=== PATIENT | male | born 1985 | race Hispanic/Latino ===

== ENCOUNTER 2019-09-11 14:31 | Emergency (ER) | payer SELFPAY ==
[2019-09-11] MEDS ORDERED: LIDOCAINE 2% MPF 5 ML VIAL ONE (15:54)
[2019-09-11] MEDS ORDERED: HYDROCODONE/APAP 10/325 TAB ONE (15:55)
[2019-09-11] MEDS ORDERED: BUPIVACAINE 0.5% PF 10 ML VIAL ONE (15:56)
--- NOTE | 2019-09-11 16:10 | RAD REPORT ---
EXAM DESCRIPTION: RAD - Chest Pa And Lat (2 Views) - 09/11/2019 3:43 pm CLINICAL HISTORY: PAINlower chest pain, rib pain, right flank pain COMPARISON: July 2014 TECHNIQUE: PA and lateral views of the chest were obtained. FINDINGS: The lungs are clear. Heart size is normal and central vasculature is within normal limit s. Left hilar fullness is not substantially different when adjusting for positioning and technique di fferences. No pleural effusion or pneumothorax seen. Fractures of the right sixth and ninth ribs are evident but not well visualized. Additional rib fractures could be present. No callus formation or o ther changes that would indicate subacute to remote fracture. No trauma history was detailed. No aort ic abnormality. IMPRESSION: Fractures of the right sixth and ninth ribs are present but not well visualized on stand marichuy protocol chest examination. Additional rib fractures could be present. No acute lung parenchymal finding. As clinical findings warrant, dedicated right-sided rib films could be obtained.
--- NOTE | 2019-09-11 16:13 | RAD REPORT ---
EXAM DESCRIPTION: RAD - Hand Left 3 View - 09/11/2019 3:45 pm CLINICAL HISTORY: Right hand pain and swelling COMPARISON: None. FINDINGS: Transverse fracture of the distal shaft left third proximal phalanx. There is dorsal 90 de gree angulation deformity of the distal fracture fragment. No distraction. No acute finding at the le ft third PIP joint. There is an acute flexion orientation of the middle phalanx relative to the dista l fracture fragment. No trauma history is supplied. No pathologic change. There is soft tissue swelli ng in this region. No other fracture changes present. No other acute bone or joint finding. No foreign body or other sof t tissue abnormality. IMPRESSION: Left third proximal phalanx fracture with 90 degree dorsal angulation of the distal frac ture fragment.
--- NOTE | 2019-09-11 16:26 | RAD REPORT ---
EXAM DESCRIPTION: RAD - Hand Left 2 View - 09/11/2019 4:19 pm CLINICAL HISTORY: Left third digit fracture, post reduction maneuvers COMPARISON: September 11 FINDINGS: PA and lateral views were obtained labeled post reduction. The 90 degree fracture angulati on deformity of the third proximal phalanx remains.
[2019-09-11] MEDS ORDERED: CEFAZOLIN/SWI 1gm 1 GM/10 ML SYR ONE (17:16)
[2019-09-11] MEDS ORDERED: TETANUS & DIPHTHERIA TOX,ADULT 0.5 ML VIAL ONE (17:16)
[2019-09-11 17:25] LABS: Absolute Lymphocytes (CBC) 2.2 K/uL (0.7-4.9); Hematocrit 43.6 % (39.6-49.0); Lymphocytes % 26.1 % (15.3-44.8); MPV 8.2 fL (7.6-11.3)
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
[2019-09-11 17:40] LABS: Potassium 4.2 mmol/L (3.5-5.1)
[2019-09-11] MEDS ORDERED: FENTANYL CITR 100 MCG/2 ML ONE (18:13)
[2019-09-11 18:56] VITALS: TEMP 98.2; O2SAT 100
[2019-09-11 18:58] VITALS: BP 119/97
== END 2019-09-11 18:44 | disposition short-term general hospital (02) ==
LOC: ER 14:31
DX: S22.41XA Multiple fractures of ribs, right side, initial encounter for closed fracture (principal); S62.613A Displaced fracture of proximal phalanx of left middle finger, initial encounter for closed fracture; X93.XXXA Assault by handgun discharge, initial encounter; Y93.9 Activity, unspecified; Y92.89 Other specified places as the place of occurrence of the external cause; Z23 Encounter for immunization; Z88.6 Allergy status to analgesic agent; Z72.0 Tobacco use
CPT/HCPCS: 36415; 64450; 71046; 80048; 85025; 90471; 90714; 96374; 96375; 99285; J0690; J3010

== ENCOUNTER 2019-10-16 17:12 | Emergency (ER) | payer SELFPAY ==
--- OUTSIDE RECORDS SUMMARY | 2019-10-16 17:14 | XMS REPORT ---
:1985 [facility] Address [address] [place] [address] Dr. Linder [address] [place] [id number] Care Team Providers Name Role Phone Unavailable Unavailable Unavailable Problems This patient has no known problems. Allergies, Adverse Reactions, Alerts This patient has no known allergies or adverse reactions. Medications This patient has no known medications. Encounters Start End Encounter Admission Attending Care Care Encounter Date/Time Date/Time Type Type Clinicians Facility Department ID 2017-12-08 2017-12-14 [facility] [id number] 00:00:00 00:00:00
[2019-10-16] MEDS ORDERED: SMZ./TMP. 800/160 MG TABLET ONE (17:57)
[2019-10-16] MEDS ORDERED: MUPIROCIN 2% OINT 22GM TUBE TOP ONE (17:57)
--- NOTE | 2019-10-16 18:06 | EDPHYS ---
Physician Documentation [facility] Name: Jose Villela Age: 34 yrs Sex: Male : 1985 Arrival Date: 10/16/2019 Time: 17:14 Bed 30 Private MD: ED Physician Isaiah Llanes HPI: 10/16 17:52 This 34 yrs old Male presents to ER via Ambulatory with complaints of Infected brittany finger. 17:52 The patient or guardian reports decreased range of motion, pain, swelling. The brittany complaints affect the PIP of right middle finger. Context: The problem was sustained at home. Onset: The symptoms/episode began/occurred 4 week(s) ago. Modifying factors: The symptoms are alleviated by nothing, elevation, the symptoms are aggravated by movement, dependent position. Associated signs and symptoms: The patient has no apparent associated signs or symptoms. Severity of symptoms: At their worst the symptoms were mild, in the emergency department the symptoms are unchanged. The patient has experienced similar episodes in the past, a few times. Historical: - Allergies: 17:21 Ibuprofen; hb - Home Meds: 17:21 gabapentin oral oral [Active]; Wellbutrin Oral [Active]; Adderall XR Oral [Active]; hb - PSHx: 17:21 Left middle finger; hb - Immunization history:: Adult Immunizations up to date. - Coronavirus screen:: The patient has NOT traveled to [place], [place], or [place] in the past 14 days. The patient has NOT had contact with known/suspected case of Coronavirus? Proceed with normal triage procedures. - Social history:: Smoking status: Reported history of juuling and/or vaping. - Family history:: not pertinent. - Ebola Screening: : No symptoms or risks identified at this time. ROS: 17:52 Constitutional: Negative for fever, chills, and weight loss, Eyes: Negative for injury, brittany pain, redness, and discharge, ENT: Negative for injury, pain, and discharge, Neck: Negative for injury, pain, and swelling, Cardiovascular: Negative for chest pain, palpitations, and edema, Respiratory: Negative for shortness of breath, cough, wheezing, and pleuritic chest pain, Abdomen/GI: Negative for abdominal pain, nausea, vomiting, diarrhea, and constipation, Back: Negative for injury and pain, : Negative for injury, bleeding, discharge, and swelling, Skin: Negative for injury, rash, and discoloration, Neuro: Negative for headache, weakness, numbness, tingling, and seizure, Psych: Negative for depression, anxiety, suicide ideation, homicidal ideation, and hallucinations, Allergy/Immunology: Negative for hives, rash, and allergies, Endocrine: Negative for neck swelling, polydipsia, polyuria, polyphagia, and marked weight changes, Hematologic/Lymphatic: Negative for swollen nodes, abnormal bleeding, and unusual bruising. 17:52 MS/extremity: Positive for decreased range of motion, pain, swelling, tenderness, of the dorsal aspect of middle phalanx of right middle finger and dorsal aspect of proximal phalanx of right middle finger. Exam: 17:52 Constitutional: This is a well developed, well nourished patient who is awake, alert, brittany and in no acute distress. Head/Face: Normocephalic, atraumatic. Eyes: Pupils equal round and reactive to light, extra-ocular motions intact. Lids and lashes normal. Conjunctiva and sclera are non-icteric and not injected. Cornea within normal limits. Periorbital areas with no swelling, redness, or edema. ENT: Nares patent. No nasal discharge, no septal abnormalities noted. Tympanic membranes are normal and external auditory canals are clear. Oropharynx with no redness, swelling, or masses, exudates, or evidence of obstruction, uvula midline. Mucous membranes moist. Neck: Trachea midline, no thyromegaly or masses palpated, and no cervical lymphadenopathy. Supple, full range of motion without nuchal rigidity, or vertebral point tenderness. No Meningismus. Chest/axilla: Normal chest wall appearance and motion. Nontender with no deformity. No lesions are appreciated. Cardiovascular: Regular rate and rhythm with a normal S1 and S2. No gallops, murmurs, or rubs. Normal PMI, no JVD. No pulse deficits. Respiratory: Lungs have equal breath sounds bilaterally, clear to auscultation and percussion. No rales, rhonchi or wheezes noted. No increased work of breathing, no retractions or nasal flaring. Abdomen/GI: Soft, non-tender, with normal bowel sounds. No distension or tympany. No guarding or rebound. No evidence of tenderness throughout. Back: No spinal tenderness. No costovertebral tenderness. Full range of motion. Male : Normal genitalia with no discharge or lesions. Skin: Warm, dry with normal turgor. Normal color with no rashes, no lesions, and no evidence of cellulitis. Neuro: Awake and alert, GCS 15, oriented to person, place, time, and situation. Cranial nerves II-XII grossly intact. Motor strength 5/5 in all extremities. Sensory grossly intact. Cerebellar exam normal. Normal gait. Psych: Awake, alert, with orientation to person, place and time. Behavior, mood, and affect are within normal limits. 17:52 Musculoskeletal/extremity: ROM: limited active range of motion, limited passive range of motion, limited active range of motion due to pain, limited passive range of motion due to pain, Circulation is intact in all extremities. Sensation intact. Vital Signs: 17:19 BP 147 / 77; Pulse 89; Resp 16; Temp 97.8(TE); Pulse Ox 100% on R/A; Weight 68.04 kg; hb Height 5 ft. 10 in. (177.80 cm); Pain 9/10; 18:15 BP 103 / 76; Pulse 77; Resp 18; Pulse Ox 98% ; wh 17:19 Body Mass Index 21.52 (68.04 kg, 177.80 cm) hb MDM: 17:26 Patient medically screened. [facility] 18:07 Data reviewed: vital signs, nurses notes. [facility] 18:07 ED course: call to dr long at [facility], pathology secretary/transcriptionist for hand, plan to call [phone]. plan brittany to be seen Friday in the clinic. 18:09 Physician consultation: dr long, endy pager [phone]. [facility] 10/16 18:00 Order name: Wound Care; Complete Time: 18:18 [facility] Administered Medications: 17:56 Drug: Bactrim (160 mg-800 mg (DS) 1 tablet Route: PO; 18:23 Follow up: Response: No adverse reaction 17:56 Drug: Bactroban Ointment 2 % 1 application Route: Topical; Site: affected area; 18:23 Follow up: Response: No adverse reaction 18:18 Drug: Doxycycline 200 mg Route: PO; 18:23 Follow up: Response: No adverse reaction Disposition: 10/16/19 18:05 Discharged to Home. Impression: Cellulitis and acute lymphangitis of other parts of limb - right middle finger. - Condition is Stable. - Discharge Instructions: Cellulitis, Adult, [id number]. - Prescriptions for Tylenol- Codeine #3 300-30 mg Oral Tablet - take 2 tablets by ORAL route every 6 hours As needed; 20 tablet. Doxycycline Hyclate 100 mg Oral Tablet - take 1 tablet by ORAL route every 12 hours; 20 tablet. Bactrim DS 800- 160 mg Oral Tablet - take 1 tablet by ORAL route every 12 hours for 10 days; 20 tablet. - Medication Reconciliation Form, Thank You Letter, Antibiotic Education, Prescription Opioid Use form. - Follow up: Private Physician; When: 2 - 3 days; Reason: Recheck today's complaints, Continuance of care, Re-evaluation by your physician. - Problem is new. - Symptoms have improved. Signatures: Isaiah Llanes MD MD cha Baxter, Heather, ALEXANDER RN Perry Clancy Corrections: (The following items were deleted from the chart) 18:24 18:05 10/16/2019 18:05 Discharged to Home. Impression: Cellulitis and acute wh lymphangitis of other parts of limb - right middle finger. Condition is Stable. Forms are Medication Reconciliation Form, Thank You Letter, Antibiotic Education, Prescription Opioid Use. Follow up: Private Physician; When: 2 - 3 days; Reason: Recheck today's complaints, Continuance of care, Re-evaluation by your physician. Problem is new. Symptoms have improved. brittany
--- NOTE | 2019-10-16 18:06 | ER ---
Nurse's Notes [facility] Name: Jose Villela Age: 34 yrs Sex: Male : 1985 Arrival Date: 10/16/2019 Time: 17:14 Bed 30 Private MD: Diagnosis: Cellulitis and acute lymphangitis of other parts of limb-right middle finger Presentation: 10/16 17:18 Presenting complaint: Had surgery on left middle finger 6 weeks ago, missed f/u appt hb last month, today reports increased swelling, redness, and pain 9/10.. Transition of care: patient was not received from another setting of care. Onset of symptoms was October 16, 2019. Risk Assessment: Do you want to hurt yourself or someone else? Patient reports no desire to harm self or others. Care prior to arrival: None. 17:18 Method Of Arrival: Ambulatory hb 17:18 Acuity: SOPHIA 3 hb 17:30 Initial Sepsis Screen: Does the patient meet any 2 criteria? No. Patient's initial sepsis screen is negative. Does the patient have a suspected source of infection? Yes: Other: infected post op wound. Historical: - Allergies: 17:21 Ibuprofen; hb - Home Meds: 17:21 gabapentin oral oral [Active]; Wellbutrin Oral [Active]; Adderall XR Oral [Active]; hb - PSHx: 17:21 Left middle finger; hb - Immunization history:: Adult Immunizations up to date. - Coronavirus screen:: The patient has NOT traveled to [place], [place], or [place] in the past 14 days. The patient has NOT had contact with known/suspected case of Coronavirus? Proceed with normal triage procedures. - Social history:: Smoking status: Reported history of juuling and/or vaping. - Family history:: not pertinent. - Ebola Screening: : No symptoms or risks identified at this time. Screenin:29 Abuse screen: Denies threats or abuse. Denies injuries from another. Nutritional wh screening: No deficits noted. Tuberculosis screening: No symptoms or risk factors identified. Fall Risk None identified. Assessment: 17:28 General: Appears in no apparent distress. Behavior is calm, cooperative, appropriate wh for age. Pain: Complains of pain in left middle finger Pain does not radiate. Pain currently is 9 out of 10 on a pain scale. Quality of pain is described as aching, Pain began 2-3 days ago. Neuro: Level of Consciousness is awake, alert, obeys commands, Oriented to person, place, time, situation, Appropriate for age. Neuro: Cardiovascular: Capillary refill < 3 seconds. Respiratory: Airway is patent Respiratory effort is even, unlabored, Respiratory pattern is regular, symmetrical. GI: Abdomen is flat, non-distended. : No signs and/or symptoms were reported regarding the genitourinary system. EENT: No signs and/or symptoms were reported regarding the EENT system. Derm: Skin is intact, is healthy with good turgor, Skin is pink, warm \T\ dry. normal. Musculoskeletal: Circulation, motion, and sensation intact. 18:21 Reassessment: Patient appears in no apparent distress at this time. No changes from previously documented assessment. Patient and/or family updated on plan of care and expected duration. Pain level reassessed. Patient is alert, oriented x 3, equal unlabored respirations, skin warm/dry/pink. Vital Signs: 17:19 BP 147 / 77; Pulse 89; Resp 16; Temp 97.8(TE); Pulse Ox 100% on R/A; Weight 68.04 kg; hb Height 5 ft. 10 in. (177.80 cm); Pain 9/10; 18:15 BP 103 / 76; Pulse 77; Resp 18; Pulse Ox 98% ; wh 17:19 Body Mass Index 21.52 (68.04 kg, 177.80 cm) hb ED Course: 17:14 Patient arrived in ED. mr 17:19 Triage completed. hb 17:21 Arm band placed on. hb 17:22 Perry Clancy is Primary Nurse. wh 17:26 Isaiah Llanes MD is Attending Physician. brittany 17:30 Patient has correct armband on for positive identification. Bed in low position. Call light in reach. Side rails up X 1. Pulse ox on. NIBP on. 18:21 No provider procedures requiring assistance completed. Patient did not have IV access during this emergency room visit. Administered Medications: 17:56 Drug: Bactrim (160 mg-800 mg (DS) 1 tablet Route: PO; 18:23 Follow up: Response: No adverse reaction 17:56 Drug: Bactroban Ointment 2 % 1 application Route: Topical; Site: affected area; 18:23 Follow up: Response: No adverse reaction 18:18 Drug: Doxycycline 200 mg Route: PO; 18:23 Follow up: Response: No adverse reaction Outcome: 18:05 Discharge ordered by . brittany 18:21 Discharged to home ambulatory. 18:21 Condition: stable 18:21 Discharge instructions given to patient, Instructed on discharge instructions, follow up and referral plans. wound care, Demonstrated understanding of instructions, follow-up care, medications, wound care, POC Prescriptions given X 3. 18:24 Patient left the ED. Signatures: Isaiah Llanes MD MD cha Rivera, Mary mr Hannah Leal, RN RN Perry Azevedo
[2019-10-16] MEDS ORDERED: DOXYCYCLINE 100 MG CAP PO ONE (18:18)
[2019-10-16 19:11] VITALS: TEMP 97.8
[2019-10-16 19:13] VITALS: BP 103/76; O2SAT 98
== END 2019-10-16 18:24 | disposition home or self-care (01) ==
LOC: ER 17:12
DX: L03.011 Cellulitis of right finger (principal); L03.021 Acute lymphangitis of right finger; Z88.6 Allergy status to analgesic agent
CPT/HCPCS: 99283